=== PATIENT | male | born 1980 | race American Indian/Alaskan Native ===

== ENCOUNTER 2019-10-24 09:44 | Emergency (ER) | payer OTHER ==
[2019-10-24 09:55] VITALS: BP 129/77
--- NOTE | 2019-10-24 11:53 | Emergency Department Report ---
Chief Complaint: Urogenital-Male Stated Complaint: POSS STD Time Seen by Provider: 10/24/19 11:33 - HPI History of Present Illness: This is a 39-year-old male nontoxic, well nourished in appearance, no acute signs of distress presents to the ED fore STD testing. PAtient denies any penile discharge. Patient denies any testicular pain or swelling. Patient denies any penile ulcers or lesions. Patient denies any nausea, vomiting, chest pain, shortness of breathe, fever, chills, headache, back pain, numbness, tingling, stiff neck. Patient denies any urinary symptoms. Patient denies any allergies or PMH. - Exam Vital Signs: Vital Signs 10/24/19 09:53 Temperature 98.4 F Pulse Rate 69 Respiratory 16 Rate Blood Pressure 129/77 [Left] O2 Sat by Pulse 96 Oximetry Physical Exam: no penile discharge. no urinary symptoms. Normal physical exam. no lesions. No testicular complaints. MSE screening note: Focused history and physical exam performed. Due to findings the following was ordered: ED Medical Decision Making - Medical Decision Making This is a 39-year-old male that presents with nonmedical emergency. Patient is stable and was examined by me. Patient is asymptomatic and denies any symptoms. Patient states he just wants to be tested for STD. I will refer the patient [facility] and health Department. At time of discharge, the patient does not seem toxic or ill in appearance. No acute signs of distress noted. Patient agrees to discharge treatment plan of care. No further questions noted by the patient. ED Disposition for MSE Clinical Impression: Possible exposure to STD Disposition: Z-07 MED SCREENING EXAM-LEFT Is pt being admited?: No Does the pt Need Aspirin: No Condition: Stable Instructions: Safe Sex (ED) Additional Instructions: Follow-up with a primary care doctor in 3-5 days or if symptoms worsen and continue return to emergency room as soon as possible. Referrals: DONTA WINSLOW MD [Primary Care Provider] - 3-5 Days CAMILO PITTS MD [Staff Physician] - 3-5 Days [facility] [Outside] - 3-5 Days
== END 2019-10-24 12:03 | disposition left against medical advice (07) ==
LOC: ED 09:44
DX: Z20.2 Contact with and (suspected) exposure to infections with a predominantly sexual mode of transmission (principal)
CPT/HCPCS: 99281

== ENCOUNTER 2020-03-04 14:52 | Emergency (ER) | payer SELFPAY ==
[2020-03-04 15:14] VITALS: BP 125/76
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
== END 2020-03-04 17:45 | disposition left against medical advice (07) ==
LOC: ED 14:52
DX: M54.2 Cervicalgia (principal); Z53.21 Procedure and treatment not carried out due to patient leaving prior to being seen by health care provider

== ENCOUNTER 2021-05-27 21:36 | Emergency (ER) | payer SELFPAY ==
[2021-05-27 23:09] VITALS: BP 124/78
[2021-05-27] MEDS ORDERED: IBUPROFEN 600 MG TAB PO ONE (23:38)
[2021-05-27] MEDS ORDERED: ACETAMINOPHEN 500 MG TAB PO ONE (23:38)
--- NOTE | 2021-05-28 00:08 | XRay Report ---
Left elbow 3 views INDICATION: Left elbow pain following injury IMPRESSION: Prominent soft tissue edema overlying the olecranon process. No underlying fracture or laughlin bluxation is identified. No significant elbow effusion appreciated. Signer Name: Clemente Peres MD Signed: 05/28/2021 12:03 AM Workstation Name: [id number]
--- NOTE | 2021-05-28 00:33 | Emergency Department Report ---
ED Upper Extremity Inj HPI - General Chief Complaint: Extremity Injury, Upper Stated Complaint: LT ELBOW PAIN Source: patient Mode of arrival: Ambulatory Limitations: No Limitations - History of Present Illness Initial Comments: Patient is a 40-year-old -[place] male with no past medical history presents to the ED with complaint of acute onset persistent painful posterior left elbow with swelling for the last 1 week after he slipped and fell, landing on the left elbow 1 week ago. Patient states that the pain is constant, persistent and worse especially with any active range of motion. Patient denies dizziness, syncope, chest pain, shortness of breath, neck pain, head or neck injuries, numbness and tingling or weakness of left arm, back pain or abdominal pain. MD Complaint: Injury to:: left, elbow (left) -: Sudden, week(s) (1) Other Extremity Injury: Elbow: Left (left elbow pain and swelling) Other Injuries: none Place: home Severity scale (0 -10): 8 Improves With: rest Worsens With: movement of extremity Context: fall, direct blow Associated Symptoms: denies other symptoms. denies: weakness, numbness, neck pain, suspects foreign body, nausea/vomiting, heard/felt popping sensat, other - Related Data Previous Rx's Medication Instructions Recorded Last Taken Type Baclofen 20 mg PO Q12H PRN #20 tablet 05/28/21 Unknown Rx Ibuprofen [Motrin] 600 mg PO Q8H PRN #30 tablet 05/28/21 Unknown Rx Allergies Allergy/AdvReac Type Severity Reaction Status Date / Time No Known Allergies Allergy Verified 05/27/21 23:04 ED Review of Systems ROS: Stated complaint: LT ELBOW PAIN Other details as noted in HPI Constitutional: denies: chills, fever Eyes: denies: eye pain, eye discharge, vision change ENT: denies: ear pain, throat pain Respiratory: denies: cough, shortness of breath, wheezing Cardiovascular: denies: chest pain, palpitations Endocrine: no symptoms reported Gastrointestinal: denies: abdominal pain, nausea, diarrhea Genitourinary: denies: urgency, dysuria Musculoskeletal: joint swelling, arthralgia (posterior left elbow pain). denies: back pain Skin: denies: rash, lesions Neurological: denies: headache, weakness, paresthesias Psychiatric: denies: anxiety, depression Hematological/Lymphatic: denies: easy bleeding, easy bruising ED Past Medical Hx - Past Medical History Previous Medical History?: Yes Additional medical history: Clavicle r FX - Surgical History Additional Surgical History: Right shoulder - Social History Smoking Status: Current Every Day Smoker Substance Use Type: Marijuana - Medications Home Medications: Home Medications Medication Instructions Recorded Confirmed Last Taken Type Baclofen 20 mg PO Q12H PRN #20 tablet 05/28/21 Unknown Rx Ibuprofen [Motrin] 600 mg PO Q8H PRN #30 tablet 05/28/21 Unknown Rx ED Physical Exam - General Limitations: No Limitations General appearance: alert, in no apparent distress - Head Head exam: Present: atraumatic, normocephalic, normal inspection - Eye Eye exam: Present: normal appearance, PERRL, EOMI Pupils: Present: normal accommodation - ENT ENT exam: Present: normal exam, normal orophraynx, mucous membranes moist, TM's normal bilaterally, normal external ear exam - Neck Neck exam: Present: normal inspection, full ROM - Respiratory Respiratory exam: Present: normal lung sounds bilaterally. Absent: respiratory distress, wheezes, rales, rhonchi, chest wall tenderness, accessory muscle use, decreased breath sounds, prolonged expiratory - Cardiovascular Cardiovascular Exam: Present: regular rate, normal rhythm, normal heart sounds. Absent: systolic murmur, diastolic murmur, rubs, gallop - GI/Abdominal GI/Abdominal exam: Present: soft, normal bowel sounds. Absent: tenderness, guarding, rebound, hyperactive bowel sounds, hypoactive bowel sounds, organomegaly - Extremities Exam Extremities exam: Present: normal inspection, tenderness (Palpable left elbow tenderness with swelling), normal capillary refill, joint swelling (Swollen, tender posterior left elbow). Absent: full ROM (Limited range of motion due to pain) - Back Exam Back exam: Present: normal inspection, full ROM. Absent: tenderness, CVA tenderness (R), CVA tenderness (L), muscle spasm, paraspinal tenderness, vertebral tenderness - Neurological Exam Neurological exam: Present: alert, oriented X3, CN II-XII intact, normal gait, reflexes normal - Psychiatric Psychiatric exam: Present: normal affect, normal mood - Skin Skin exam: Present: warm, dry, intact, normal color. Absent: rash ED Course Vital Signs 05/27/21 23:04 Temperature 98.7 F Pulse Rate 61 Respiratory 16 Rate Blood Pressure 124/78 O2 Sat by Pulse 100 Oximetry ED Medical Decision Making - Radiology Data Radiology results: report reviewed, image reviewed [facility] [address] [place] [address] XRay Report Signed Patient: NANCI BRANCH MR#: [id number] : 1980 Acct:[id number] Age/Sex: 40 / M ADM Date: 05/27/21 Loc: ED Attending Dr: Ordering Physician: DAVID ROSALES Date of Service: 05/27/21 Procedure(s): XR elbow 3+V LT Accession Number(s): [id number] cc: DAVID ROSALES Fluoro Time In Minutes: Left elbow 3 views INDICATION: Left elbow pain following injury IMPRESSION: Prominent soft tissue edema overlying the olecranon process. No underlying fracture or subluxation is identified. No significant elbow effusion appreciated. Signer Name: Clemente Peres MD Signed: 05/28/2021 12:03 AM Workstation Name: [id number] Transcribed By: BC Dictated By: Clemente Peres MD Electronically Authenticated By: Clemente Peres MD Signed Date/Time: 05/28/21 0003 DD/ 0003 TD/TT: - Medical Decision Making This is a 40-year-old -[place] male with no past medical history presents to the ED with complaint of acute onset persistent painful posterior left elbow with swelling for the last 1 week after he slipped and fell, landing on the left elbow 1 week ago. Patient states that the pain is constant, persistent and worse especially with any active range of motion. In the ED, patient is alert and oriented x3 and is not in any distress. Patient was treated for pain in the ED and left elbow x-ray showed no acute fractures or subluxations. No significant elbow joint effusion observed. Prominent soft tissue edema overlying the olecranon process identified. Patient symptoms are likely due to olecranon bursitis versus muscle strain of left elbow. Patient was therefore discharged home on pain medications and advised to follow-up with his primary care physician in 7 to 10 days for reevaluation. Patient was advised to return to the ED immediately if symptoms get worse - Differential Diagnosis elbow fracture; elbow contusion; elbow bursitis; elbow sprain Critical care attestation.: If time is entered above; I have spent that time in minutes in the direct care of this critically ill patient, excluding procedure time. ED Disposition Clinical Impression: Olecranon bursitis of left elbow Sprain of left elbow Qualifiers: Encounter type: initial encounter Qualified Code(s): S53.402A - Unspecified sprain of left elbow, initial encounter Left elbow contusion Qualifiers: Encounter type: initial encounter Qualified Code(s): S50.02XA - Contusion of left elbow, initial encounter Disposition: HOME / SELF CARE / HOMELESS Is pt being admited?: No Does the pt Need Aspirin: No Condition: Stable Instructions: Elbow Bursitis, Qldx-vw-Dapt, Elbow Contusion, [id number] Additional Instructions: The left elbow x-ray showed no acute fractures or subluxation but soft tissue swelling. Therefore take pain medication as needed, drink plenty of fluids and follow-up with your primary care physician in 5 to 7 days for reevaluation. Return to the ED immediately if symptoms get worse Prescriptions: Baclofen 20 mg PO Q12H PRN #20 tablet PRN Reason: Muscle Spasm Ibuprofen [Motrin] 600 mg PO Q8H PRN #30 tablet PRN Reason: Pain Referrals: [facility] [Provider Group] - 3-5 Days Time of Disposition: 00:39 Print Language: PERSIAN
== END 2021-05-28 01:48 | disposition home or self-care (01) ==
LOC: ED 21:36
DX: S53.492A Other sprain of left elbow, initial encounter (principal); M70.22 Olecranon bursitis, left elbow; F17.200 Nicotine dependence, unspecified, uncomplicated; F12.90 Cannabis use, unspecified, uncomplicated; Z79.899 Other long term (current) drug therapy; X58.XXXA Exposure to other specified factors, initial encounter; Y93.89 Activity, other specified; Y92.89 Other specified places as the place of occurrence of the external cause; Y99.8 Other external cause status
CPT/HCPCS: 99283

== ENCOUNTER 2021-11-13 21:13 | Emergency (ER) | payer BC ==
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
--- NOTE | 2021-11-14 02:53 | Emergency Department Report ---
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 This has subsided for short amount of time then began to experience pressure in the fingertip was followed by swelling and progressively worsening discomfort. No fever, chills, sweats. He reports no reinjury. No nausea, no vomiting. MD Complaint: Injury to:: right, finger -: Gradual, Sudden Other Extremity Injury: Fingers: Right Other Injuries: none Handedness: right Place: home Improves With: none Worsens With: none Context: direct blow Associated Symptoms: denies other symptoms Treatments Prior to Arrival: cold therapy - Related Data Previous Rx's Medication Instructions Recorded Last Taken Type Baclofen 20 mg PO Q12H PRN #20 tablet 05/28/21 Unknown Rx Ibuprofen [Motrin] 600 mg PO Q8H PRN #30 tablet 05/28/21 Unknown Rx Clindamycin [Clindamycin CAP] 150 mg PO Q8HR #21 capsule 11/14/21 Unknown Rx traMADoL [Ultram] 50 mg PO Q6HR PRN #20 tablet 11/14/21 Unknown Rx Allergies Allergy/AdvReac Type Severity Reaction Status Date / Time No Known Allergies Allergy Verified 05/27/21 23:04 ED Review of Systems ROS: Stated complaint: FINGER INJURY Other details as noted in HPI Comment: All other systems reviewed and negative ED Past Medical Hx - Past Medical History Additional medical history: Clavicle r FX - Surgical History Additional Surgical History: Right shoulder - Social History Smoking Status: Current Every Day Smoker Substance Use Type: Marijuana - Medications Home Medications: Home Medications Medication Instructions Recorded Confirmed Last Taken Type Baclofen 20 mg PO Q12H PRN #20 tablet 05/28/21 Unknown Rx Ibuprofen [Motrin] 600 mg PO Q8H PRN #30 tablet 05/28/21 Unknown Rx Clindamycin [Clindamycin CAP] 150 mg PO Q8HR #21 capsule 11/14/21 Unknown Rx traMADoL [Ultram] 50 mg PO Q6HR PRN #20 tablet 11/14/21 Unknown Rx ED Physical Exam - General Limitations: No Limitations General appearance: alert, in no apparent distress - Head Head exam: Present: atraumatic, normocephalic - Eye Eye exam: Present: normal appearance, PERRL - ENT ENT exam: Present: mucous membranes moist - Neck Neck exam: Present: normal inspection - Respiratory Respiratory exam: Present: normal lung sounds bilaterally. Absent: respiratory distress - Cardiovascular Cardiovascular Exam: Present: regular rate, normal rhythm. Absent: systolic murmur, diastolic murmur, rubs, gallop - GI/Abdominal GI/Abdominal exam: Present: soft, normal bowel sounds - Rectal Rectal exam: Present: deferred - Extremities Exam Extremities exam: Present: normal inspection - Back Exam Back exam: Present: normal inspection - Neurological Exam Neurological exam: Present: alert, oriented X3 - Psychiatric Psychiatric exam: Present: normal affect, normal mood - Skin Skin exam: Present: warm, dry, intact, normal color. Absent: rash ED Course Vital Signs 11/13/21 21:33 Temperature 98.9 F Respiratory 16 Rate Blood Pressure 158/96 - Procedure Description Procedures done: PRE-OP DIAGNOSIS: *Abscess. POST-OP DIAGNOSIS: Same. PROCEDURE: incision and drainage of felon. Performing Physician/advanced practice provider: Keturah Byrnes_. . PROCEDURE: A timeout protocol was performed prior to initiating the procedure. The area was prepared and draped in the usual, sterile manner. The site was anesthetized with 2% lidocaine without epinephrine. A linear incision was along the local skin lines was made and the purulent material expressed. The abcess was explored thoroughly and sequestered pockets were opened. Wound was irrigated with normal saline and bleeding was minimal. Packing: None. . Followup: The patient tolerated the procedure well without complications. Standard post-procedure care is explained and return precautions are given. ED Medical Decision Making - Radiology Data Radiology results: report reviewed [facility] [address] [place] [address] XRay Report Signed Patient: NANCI BRANCH MR#: [id number] : 1980 Acct:[id number] Age/Sex: 41 / M ADM Date: 11/13/21 Loc: ED Attending Dr: Ordering Physician: LOS MONTALVO MD Date of Service: 11/13/21 Procedure(s): XR hand 3+V RT Accession Number(s): [id number] cc: ED DOC, Fluoro Time In Minutes: RIGHT HAND 4 VIEW(S) INDICATION / CLINICAL INFORMATION: hand injury COMPARISON: None available. FINDINGS: BONES / JOINT(S): No acute fracture or subluxation. No significant arthritis. Deformity of the small finger metacarpal is thought to reflect previous boxer's fracture. SOFT TISSUES: No significant abnormality. ADDITIONAL FINDINGS: None. IMPRESSION: 1. Deformity of the small finger metacarpal adjacent MCP thought to reflect sequelae of previous injury. No acute osseous findings are clearly demonstrated. Signer Name: Ximena Rahman II, MD Signed: 11/13/2021 10:01 PM Workstation Name: [id number] Transcribed By: BRIA Dictated By: XIMENA RAHMAN II, MD Electronically Authenticated By: XIMENA RAHMAN II, MD Signed Date/Time: 11/13/212200 DD/ 99 TD/TT: - Medical Decision Making 41-year-old male [facility] emerge department complaining of crush injury to the index finger resulting in no acute fractures to any of the phalanges. Examination did reveal infection to the fingertip evolving into a felon. The wound was prepped and drained with 11 blade with copious amounts of pus expelled from the wound. The wound was then irrigated with Betadine peroxide solution and the finger was soaked for about 5 minutes at the been wash free of all the detergents. It is then treated with clindamycin and injection and discharged home with a prescription of analgesic medication with more clindamycin. Procedure tolerated well estimated blood loss less than 2 cc Critical care attestation.: If time is entered above; I have spent that time in minutes in the direct care of this critically ill patient, excluding procedure time. ED Disposition Clinical Impression: Felon of finger Disposition: HOME / SELF CARE / HOMELESS Is pt being admited?: No Does the pt Need Aspirin: No Condition: Stable Instructions: Fingertip Infection Prescriptions: Clindamycin [Clindamycin CAP] 150 mg PO Q8HR #21 capsule traMADoL [Ultram] 50 mg PO Q6HR PRN #20 tablet PRN Reason: Pain Referrals: CAMILO PITTS MD [Primary Care Provider] - 3-5 Days
[2021-11-14] MEDS ORDERED: oxyCODONE /ACETAMINOPHEN 5-325MG TAB PO ONE (03:06)
[2021-11-14] MEDS ORDERED: CLINDAMYCIN 150 MG/ML VIAL 6 ML IM ONE (03:07)
[2021-11-14 04:40] VITALS: BP 142/76
== END 2021-11-14 04:40 | disposition home or self-care (01) ==
LOC: ED 21:13
DX: L03.012 Cellulitis of left finger (principal); F17.200 Nicotine dependence, unspecified, uncomplicated
CPT/HCPCS: 96372; 99283